=== PATIENT | female | born 1945 ===

== ENCOUNTER 2016-05-31 10:00 | Outpatient (RCR) | payer MEDICARE | END 2016-06-28 | disposition home or self-care (01) | LOC: PTY 10:00 | DX: M72.2 Plantar fascial fibromatosis (principal); M76.60 Achilles tendinitis, unspecified leg; I10 Essential (primary) hypertension; M19.90 Unspecified osteoarthritis, unspecified site | CPT/HCPCS: 97035; 97110; 97140; 97161; G0283; G8978; G8979 ==